=== PATIENT | male | born 1990 | race Hispanic/Latino ===

== ENCOUNTER → 2023-08-06 | Outpatient (REF) | payer OTHER ==
[~2023-08-06] MED LIST: LIDOCAINE VISC 2% SOLN 15 ML UDC ONE; MUPIROCIN 2% OINT 22 GM TUBE ONE
== END ==
LOC: WCC 13:02
PROVIDERS: ATTEND Internal Medicine Infectious Disease
DX: S31.819A Unspecified open wound of right buttock, initial encounter (principal); S31.829A Unspecified open wound of left buttock, initial encounter; S31.109A Unspecified open wound of abdominal wall, unspecified quadrant without penetration into peritoneal cavity, initial encounter; S21.201A Unspecified open wound of right back wall of thorax without penetration into thoracic cavity, initial encounter; S21.209A Unspecified open wound of unspecified back wall of thorax without penetration into thoracic cavity, initial encounter; S71.001A Unspecified open wound, right hip, initial encounter

== ENCOUNTER → 2023-08-07 | Outpatient (REF) | payer OTHER ==
[~2023-08-07] MED LIST changes: -LIDOCAINE VISC 2% SOLN 15 ML UDC ONE
== END ==
LOC: WCC 14:26
PROVIDERS: ATTEND Internal Medicine Infectious Disease
DX: S31.819A Unspecified open wound of right buttock, initial encounter (principal); S31.829A Unspecified open wound of left buttock, initial encounter; S31.109A Unspecified open wound of abdominal wall, unspecified quadrant without penetration into peritoneal cavity, initial encounter; S21.201A Unspecified open wound of right back wall of thorax without penetration into thoracic cavity, initial encounter; S21.209A Unspecified open wound of unspecified back wall of thorax without penetration into thoracic cavity, initial encounter; S71.001A Unspecified open wound, right hip, initial encounter

== ENCOUNTER → 2023-08-09 | Outpatient (REF) | payer OTHER | LOC: EDSTATUS 10:57 → WCC 13:29 | PROVIDERS: ATTEND Internal Medicine Infectious Disease | DX: S31.819A Unspecified open wound of right buttock, initial encounter (principal); S31.829A Unspecified open wound of left buttock, initial encounter; S31.109A Unspecified open wound of abdominal wall, unspecified quadrant without penetration into peritoneal cavity, initial encounter; S21.201A Unspecified open wound of right back wall of thorax without penetration into thoracic cavity, initial encounter; S21.209A Unspecified open wound of unspecified back wall of thorax without penetration into thoracic cavity, initial encounter; S71.001A Unspecified open wound, right hip, initial encounter ==

== ENCOUNTER → 2023-08-15 | Outpatient (REF) | payer OTHER ==
[~2023-08-15] MED LIST changes: +LIDOCAINE VISC 2% SOLN 15 ML UDC ONE
== END ==
LOC: WCC 11:38
PROVIDERS: ATTEND Internal Medicine Infectious Disease
DX: S31.819A Unspecified open wound of right buttock, initial encounter (principal); S31.829A Unspecified open wound of left buttock, initial encounter; S31.109A Unspecified open wound of abdominal wall, unspecified quadrant without penetration into peritoneal cavity, initial encounter; S21.201A Unspecified open wound of right back wall of thorax without penetration into thoracic cavity, initial encounter; S21.209A Unspecified open wound of unspecified back wall of thorax without penetration into thoracic cavity, initial encounter; S71.001A Unspecified open wound, right hip, initial encounter